=== PATIENT | female | born 1960 | race Caucasian/White ===

== ENCOUNTER → 2023-08-18 07:21 | Outpatient (ROUT) | payer OTHER, MEDICAID, SELFPAY ==
[2023-08-18 07:30] LABS: Hematocrit 42.7 % (36-46); Hemoglobin 14.7 g/dL (12.0-16.0); Mean Corpuscular HGB Conc 34.5 % (30-36); Mean Corpuscular Hemoglobin 35.5 PG (26-34); Mean Corpuscular Volume 102.9 fL (80-100); Platelet Count 210 X10^3/uL (150-400); Red Blood Cell Count 4.15 X10^6/uL (4.0-5.2); Red Cell Distribution Width 13.3 % (11.6-14.8); White Blood Cell Count 7.5 X10^3/uL (4.5-11.0)
[2023-08-18 07:47] LABS: Alanine Aminotransferase 32 IU/L (<35); Albumin 4.6 g/dL (3.5-5.0); Albumin Globulin Ratio 1.4 (1.0-2.8); Alkaline Phosphatase 88 U/L (38-126); Aspartate Aminotransferase 41 IU/L (14-36); BUN Creatinine Ratio 16.7 (6-22); Bilirubin Total 0.5 mg/dL (0.2-1.3); Blood Urea Nitrogen 11 mg/dL (7-17); Calcium 9.9 mg/dL (8.4-10.2); Carbon Dioxide 26 mmol/L (22-32); Chloride 102 mmol/L (98-107); Estimated Glomerular Filt Rate > 60 mL/min (>60); Globulin 3.2 g/dL (1.7-4.1); Glucose 142 mg/dL (80-110); HEMOLYSIS 23 (0-50); Potassium 4.5 mmol/L (3.4-5.1); Sodium 136 mmol/L (137-145); Total Protein 7.8 g/dL (6.3-8.2)
[2023-08-18 08:18] LABS: Thyroid Stimulating Hormone 11.7 uIU/mL (0.47-4.68)
== END ==
PROVIDERS: Visit Provider Internal Medicine
DX: D64.9 Anemia, unspecified (principal); E03.9 Hypothyroidism, unspecified
CPT/HCPCS: 36415; 80053; 84443; 85027

== ENCOUNTER → 2023-09-15 07:54 | Outpatient (ROUT) | payer OTHER, MEDICAID, SELFPAY ==
[2023-09-15 13:44] LABS: Free T4, Direct Thyroxine 1.14 ng/dL (0.78-2.19)
== END ==
PROVIDERS: Visit Provider Internal Medicine
DX: E03.9 Hypothyroidism, unspecified (principal)
CPT/HCPCS: 36415; 84439; 84443

== ENCOUNTER → 2023-10-13 07:16 | Outpatient (ROUT) | payer OTHER, MEDICAID, SELFPAY ==
[2023-10-13 07:30] LABS: Hematocrit 42.4 % (36-46); Hemoglobin 14.8 g/dL (12.0-16.0); Mean Corpuscular HGB Conc 34.8 % (30-36); Mean Corpuscular Hemoglobin 35.2 PG (26-34); Mean Corpuscular Volume 101.1 fL (80-100); Platelet Count 195 X10^3/uL (150-400); Red Cell Distribution Width 12.9 % (11.6-14.8); White Blood Cell Count 6.3 X10^3/uL (4.5-11.0)
[2023-10-13 07:47] LABS: BUN Creatinine Ratio 15.8 (6-22); Blood Urea Nitrogen 12 mg/dL (7-17); Calcium 10.2 mg/dL (8.4-10.2); Carbon Dioxide 25 mmol/L (22-32); Chloride 103 mmol/L (98-107); Estimated Glomerular Filt Rate > 60 mL/min (>60); Glucose 115 mg/dL (80-110); HEMOLYSIS < 15 (0-50); Potassium 4.6 mmol/L (3.4-5.1); Sodium 138 mmol/L (137-145)
[2023-10-13 07:57] LABS: NT-proBNP (BNP-Adult 18+) 210 pg/mL (<125)
== END ==
PROVIDERS: Visit Provider Registered Nurse
DX: I10 Essential (primary) hypertension (principal); R63.5 Abnormal weight gain
CPT/HCPCS: 80048; 83880; 85027

== ENCOUNTER → 2023-10-27 07:22 | Outpatient (ROUT) | payer OTHER, MEDICAID, SELFPAY ==
[2023-10-27 07:56] LABS: Free T4, Direct Thyroxine 1.11 ng/dL (0.78-2.19)
[2023-10-27 08:10] LABS: Thyroid Stimulating Hormone 8.29 uIU/mL (0.47-4.68)
[2023-10-27 10:10] LABS: Hemoglobin A1C% w Est Avg Glu 6.1 % (4.0-6.0)
== END ==
PROVIDERS: Visit Provider Internal Medicine
DX: E03.9 Hypothyroidism, unspecified (principal)
CPT/HCPCS: 36415; 83036; 84439; 84443

== ENCOUNTER → 2023-11-22 15:54 | Outpatient (ROUT) | payer OTHER, MEDICAID, SELFPAY ==
[2023-11-22 16:04] LABS: Appearance Urine UA CLOUDY; Bilirubin Urine UA NEGATIVE (NEGATIVE); Color Urine UA YELLOW; Glucose Urine UA NEGATIVE (Negative); Ketones Urine UA NEGATIVE (NEGATIVE); Leukocyte Esterase Urine UA 1+ (NEGATIVE); Nitrite Urine UA NEGATIVE (Negative); Occult Blood Urine UA 1+ (Negative); Protein Urine UA 1+ (Negative); Specific Gravity Urine UA >=1.030 (1.000-1.035); Urobilinogen Urine UA 0.2 E.U./dL (0.2)
[2023-11-22 16:32] LABS: pH Urine UA 5.5 (4.5-8.0)
[2023-11-22 16:33] LABS: Bacteria Urine Few (2-10); RBC Urine 1-5/HPF (0-5/HPF); Squamous Epithelial Cell Urine 0-1 /HPF (0-5/HPF); Urine Volume Low Vol <10mL (spun); WBC Urine 10-30/HPF (0-5/HPF)
[2023-11-22 16:34] LABS: Culture Indicated Urine Specimen Cultured
== END ==
PROVIDERS: Visit Provider Internal Medicine
DX: R30.0 Dysuria (principal); R35.0 Frequency of micturition; R39.15 Urgency of urination
CPT/HCPCS: 81001; 87077; 87086

== ENCOUNTER → 2023-12-08 15:16 | Outpatient (ROUT) | payer OTHER, MEDICAID, SELFPAY ==
[2023-12-08 15:45] LABS: Appearance Urine UA CLEAR; Bilirubin Urine UA 1+ (NEGATIVE); Color Urine UA YELLOW; Glucose Urine UA NEGATIVE (Negative); Ketones Urine UA TRACE (NEGATIVE); Leukocyte Esterase Urine UA 3+ (NEGATIVE); Nitrite Urine UA NEGATIVE (Negative); Occult Blood Urine UA TRACE-INTACT (Negative); Protein Urine UA 1+ (Negative); Specific Gravity Urine UA 1.025 (1.000-1.035); Urobilinogen Urine UA 0.2 E.U./dL (0.2)
[2023-12-08 16:08] LABS: Bacteria Urine Few (2-10); RBC Urine 1-5/HPF (0-5/HPF); Renal Epithelial Cells Urine 1-5/HPF (0-1/HPF); Squamous Epithelial Cell Urine 0-1 /HPF (0-5/HPF); Transitional Epi Cells Urine 1-5/HPF (0-5/HPF); Urine Volume Low Vol <10mL (spun); WBC Urine 10-30/HPF (0-5/HPF)
[2023-12-08 16:09] LABS: Culture Indicated Urine Cult Not Indicated
[2023-12-08 16:46] LABS: Ictotest Urine Negative (Negative)
== END ==
PROVIDERS: Visit Provider Nurse Practitioner Family
DX: R30.0 Dysuria (principal); R35.0 Frequency of micturition; R39.15 Urgency of urination
CPT/HCPCS: 81001

== ENCOUNTER → 2023-12-09 17:25 | Outpatient (ROUT) | payer OTHER, MEDICAID, SELFPAY ==
[2023-12-09 18:01] LABS: Bilirubin Urine UA NEGATIVE (NEGATIVE); Color Urine UA YELLOW; Glucose Urine UA NEGATIVE (Negative); Ketones Urine UA NEGATIVE (NEGATIVE); Leukocyte Esterase Urine UA 3+ (NEGATIVE); Nitrite Urine UA NEGATIVE (Negative); Occult Blood Urine UA NEGATIVE (Negative); Protein Urine UA NEGATIVE (Negative); Urobilinogen Urine UA 0.2 E.U./dL (0.2)
[2023-12-09 18:28] LABS: Appearance Urine UA CLOUDY; pH Urine UA 6.5 (4.5-8.0)
[2023-12-09 18:34] LABS: Bacteria Urine Moderate (10-30); RBC Urine None Seen (0-5/HPF); Squamous Epithelial Cell Urine None Seen (0-5/HPF); Transitional Epi Cells Urine 1-5/HPF (0-5/HPF); Urine Volume 10mL (spun); WBC Urine 30-100/HPF (0-5/HPF)
[2023-12-09 18:35] LABS: Culture Indicated Urine Specimen Cultured
== END ==
PROVIDERS: Visit Provider Nurse Practitioner Family
DX: R30.0 Dysuria (principal); R35.0 Frequency of micturition; R39.15 Urgency of urination
CPT/HCPCS: 81001; 87086

== ENCOUNTER → 2023-12-27 15:29 | Outpatient (ROUT) | payer OTHER, MEDICAID, SELFPAY ==
[2023-12-27 15:37] LABS: Appearance Urine UA CLOUDY; Bilirubin Urine UA NEGATIVE (NEGATIVE); Color Urine UA YELLOW; Glucose Urine UA NEGATIVE (Negative); Ketones Urine UA NEGATIVE (NEGATIVE); Leukocyte Esterase Urine UA 1+ (NEGATIVE); Nitrite Urine UA NEGATIVE (Negative); Occult Blood Urine UA 3+ (Negative); Protein Urine UA 2+ (Negative); Specific Gravity Urine UA >=1.030 (1.000-1.035); Urobilinogen Urine UA 0.2 E.U./dL (0.2); pH Urine UA 5.5 (4.5-8.0)
[2023-12-27 15:48] LABS: Bacteria Urine Many (>30); Culture Indicated Urine Specimen Cultured; RBC Urine >100/HPF (0-5/HPF); Squamous Epithelial Cell Urine 5-10 /HPF (0-5/HPF); Urine Volume Low Vol <10mL (spun); WBC Urine 30-100/HPF (0-5/HPF)
== END ==
PROVIDERS: Visit Provider Internal Medicine
DX: R39.15 Urgency of urination (principal)
CPT/HCPCS: 81001; 87077; 87086; 87186

== ENCOUNTER → 2024-03-21 15:59 | Outpatient (ROUT) | payer OTHER, SELFPAY ==
[2024-03-21 16:30] LABS: Appearance Urine UA CLEAR; Bilirubin Urine UA NEGATIVE (NEGATIVE); Color Urine UA YELLOW; Glucose Urine UA NEGATIVE (Negative); Ketones Urine UA TRACE (NEGATIVE); Leukocyte Esterase Urine UA TRACE (NEGATIVE); Nitrite Urine UA NEGATIVE (Negative); Occult Blood Urine UA NEGATIVE (Negative); Protein Urine UA NEGATIVE (Negative); Specific Gravity Urine UA 1.025 (1.000-1.035); Urobilinogen Urine UA 0.2 E.U./dL (0.2)
[2024-03-21 16:38] LABS: Bacteria Urine Few (2-10); Culture Indicated Urine Cult Not Indicated; RBC Urine 0-1/HPF (0-5/HPF); Squamous Epithelial Cell Urine 1-5 /HPF (0-5/HPF); Urine Volume 10mL (spun); WBC Urine 1-5/HPF (0-5/HPF)
[2024-03-21 16:41] LABS: Influenza A - CEPHEID Flu A NEGATIVE (NEGATIVE); Influenza B - CEPHEID Flu B NEGATIVE (NEGATIVE); Respiratory Syncytial Virus Negative (Negative)
[2024-03-21 16:43] LABS: COVID-19 CEPHEID 4-PLEX PCR Negative (Negative)
== END ==
PROVIDERS: Visit Provider Registered Nurse
DX: R05.9 Cough, unspecified (principal); R30.0 Dysuria; R35.0 Frequency of micturition; R39.15 Urgency of urination
CPT/HCPCS: 87635; 87400 ×2; 87420; 0241U; 81001

== ENCOUNTER → 2024-04-07 07:34 | Outpatient (ROUT) | payer OTHER, SELFPAY ==
[2024-04-07 08:08] LABS: Appearance Urine UA CLOUDY; Color Urine UA YELLOW; Specific Gravity Urine UA 1.025 (1.000-1.035); pH Urine UA 5.5 (4.5-8.0)
[2024-04-07 08:09] LABS: Bilirubin Urine UA 1+ (NEGATIVE); Glucose Urine UA NEGATIVE (Negative); Ketones Urine UA TRACE (NEGATIVE); Leukocyte Esterase Urine UA TRACE (NEGATIVE); Nitrite Urine UA NEGATIVE (Negative); Occult Blood Urine UA 3+ (Negative); Protein Urine UA 1+ (Negative); Urine Volume 10mL (spun); Urobilinogen Urine UA 0.2 E.U./dL (0.2)
[2024-04-07 08:10] LABS: Bacteria Urine Many (>30); Calcium Oxalate Crystals Urine Moderate; Culture Indicated Urine Specimen Cultured; RBC Urine 10-30/HPF (0-5/HPF); Squamous Epithelial Cell Urine 1-5 /HPF (0-5/HPF); WBC Urine >100/HPF (0-5/HPF)
[2024-04-07 08:12] LABS: Ictotest Urine Negative (Negative)
== END ==
PROVIDERS: Visit Provider Registered Nurse
DX: R30.0 Dysuria (principal); R35.0 Frequency of micturition; R39.15 Urgency of urination
CPT/HCPCS: 81001; 87077; 87086; 87186

== ENCOUNTER → 2024-04-25 19:36 | Outpatient (ROUT) | payer OTHER, SELFPAY ==
[2024-04-25 20:22] LABS: Appearance Urine UA CLOUDY; Bilirubin Urine UA NEGATIVE (NEGATIVE); Color Urine UA YELLOW; Glucose Urine UA NEGATIVE (Negative); Ketones Urine UA TRACE (NEGATIVE); Leukocyte Esterase Urine UA 3+ (NEGATIVE); Nitrite Urine UA POSITIVE (Negative); Occult Blood Urine UA NEGATIVE (Negative); Protein Urine UA NEGATIVE (Negative); Specific Gravity Urine UA 1.015 (1.000-1.035)
[2024-04-25 20:30] LABS: Bacteria Urine Many (>30); RBC Urine None Seen (0-5/HPF); Squamous Epithelial Cell Urine 0-1 /HPF (0-5/HPF); Urine Volume 10mL (spun); WBC Urine 30-100/HPF (0-5/HPF)
[2024-04-25 20:31] LABS: Culture Indicated Urine Specimen Cultured; Transitional Epi Cells Urine 1-5/HPF (0-5/HPF)
== END ==
PROVIDERS: Visit Provider Registered Nurse
DX: R33.9 Retention of urine, unspecified (principal); R35.0 Frequency of micturition; R39.15 Urgency of urination
CPT/HCPCS: 81001; 87077; 87086; 87186

== ENCOUNTER → 2024-05-25 14:48 | Outpatient (CLI) | payer OTHER, SELFPAY | PROVIDERS: Visit Provider Urology | DX: R39.9 Unspecified symptoms and signs involving the genitourinary system (principal) | CPT/HCPCS: 87077; 87086 ==

== ENCOUNTER 2024-06-20 20:35 | Emergency (ER) | payer OTHER, SELFPAY ==
[2024-06-20] VITALS (10 sets, daily range): BP systolic 93–143; BP diastolic 52–80; PULSE 64–80; RESP 17–18; TEMP 36.1; O2SAT 93–99; BMI 30.4
--- NOTE | 2024-06-20 21:38 | ED_ITS ---
HPI - Fall General Chief Complaint: Fall Stated Complaint: GLF Time Seen by Provider: 06/20/24 21:38 Source: patient and EMS Mode of arrival: EMS History of Present Illness HPI Narrative: Patient is a 63-year-old female with past medical history of hypothyroidism, hypertension, comes into the ED via EMS for evaluation of fall. Patient admits to drinking some alcohol today states that she fell hit the back of her head but denies any LOC not on any blood thinners, time of evaluation patient is inebriated however answering questions appropriately moving all 4 extremities spontaneously, NIH of 0. Related Data Home Medications Medication Instructions Recorded Confirmed acetaminophen 500 mg tablet 500 mg PO Q6H PRN 05/25/24 05/25/24 (Tylenol Extra Strength) anastrozole 1 mg tablet 1 mg PO DAILY 05/25/24 05/25/24 cholecalciferol (vitamin D3) 25 25 mcg PO DAILY 05/25/24 05/25/24 mcg (1,000 unit) capsule diclofenac sodium 1 % topical gel 2 g topical QID 05/25/24 05/25/24 (Arthritis Pain (diclofenac)) divalproex 500 mg tablet,delayed 500 mg PO BID 05/25/24 05/25/24 release gabapentin 300 mg capsule 300 mg PO BEDTIME 05/25/24 05/25/24 guaifenesin 400 mg tablet 400 mg PO ONCE PRN 05/25/24 05/25/24 hydrocortisone 1 % topical cream 1 applic topical TID PRN 05/25/24 05/25/24 ketoconazole 2 % shampoo 1 applic topical 2XW 05/25/24 05/25/24 ketoconazole 2 % topical cream 1 applic topical DAILY 05/25/24 05/25/24 levothyroxine 200 mcg capsule 200 mcg PO DAILY 05/25/24 05/25/24 levothyroxine 25 mcg capsule 25 mcg PO DAILY 05/25/24 05/25/24 loperamide 2 mg tablet 2 mg PO Q6H PRN 05/25/24 05/25/24 (Anti-Diarrheal (loperamide)) magnesium 250 mg tablet 250 mg PO DAILY 05/25/24 05/25/24 metoprolol succinate 25 mg 12.5 mg PO DAILY 05/25/24 05/25/24 tablet,extended release 24 hr ondansetron HCl 4 mg tablet 4 mg PO Q8H PRN 05/25/24 05/25/24 oxybutynin chloride 5 mg tablet 5 mg PO BID 05/25/24 05/25/24 vitamins no.148-iron 27 cap PO 05/25/24 05/25/24 mg-folate 1 mg-dha 205 mg capsule quetiapine 100 mg tablet 100 mg PO DAILY 05/25/24 05/25/24 quetiapine 400 mg tablet 400 mg PO BID 05/25/24 05/25/24 trazodone 100 mg tablet 100 mg PO BEDTIME PRN 05/25/24 05/25/24 Allergies Allergy/AdvReac Type Severity Reaction Status Date / Time Penicillins Allergy Unknown Verified 05/25/24 15:08 Sulfa (Sulfonamide AdvReac Verified 05/25/24 15:08 Antibiotics) Review of Systems Review of Systems Narrative: General: Positive fall, Denies fever, chills, weight loss HEENT: Denies headache, eye drainage, eye irritation, head trauma, sore throat, voice change Cardiovascular: Denies any chest pain, palpitations, tachycardia Respiratory: Denies any shortness of breath, cough, wheeze, stridor GI/: Denies any abdominal pain, nausea, vomiting, diarrhea, bright red blood per rectum, melanotic stools, urinary frequency, urinary retention, dysuria, hematuria MSK: Denies any joint pain, muscle pains, swelling Skin: Denies any rashes, lesions, discoloration Neuro: Denies any headache, lightheadedness, dizziness, fainting, weakness Psych: Denies SI/HI Patient History Medical History Hx of thyroid disease History of depression Hx of breast cancer Surgical History Hx of lithotripsy History of kidney surgery Social History marital status: unmarried,single Smoking Status: Current every day smoker Tobacco: How many years used: 55 alcohol intake: former caffeine: Yes Type(s) of exercise: walking frequency: daily duration: decline to answer Smoking Status: Current every day smoker tobacco type: cigarettes Exam Narrative Exam Narrative: General: Cooperative, well-developed, not in acute distress HEENT: 0.5cm linear laceration of the posterior aspect of the head, not active bleeding, PERRLA, normal sclera, eyelids normal Neck: Active full range of motion, atraumatic Chest: Normal to inspection, negative crepitus, no overlying erythema ecchymosis Respiratory: Normal respiratory effort, not in acute respiratory distress, clear to auscultation bilaterally negative cough, wheeze, tachypnea, rhonchi, rales Cardiology: Regular rate rhythm negative gallop, murmur, rubs GI/: No tenderness to palpation, soft, non rigid, normal to inspection, exam deferred MSK: Full active range of motion in all 4 extremities, atraumatic, no tenderness to palpation of any bony prominences Skin: No rashes or lesions noted Neuro: NIH of 0, however patient is inebriated, Alert awake oriented x3, moves all 4 extremities spontaneously, cranial nerves intact, able to answer all questions appropriately follows commands appropriately Psych: Cooperative, negative suicidal or homicidal ideations Initial Vital Signs Initial Vital Signs: Vital Signs Pulse Rate 64 06/20/24 20:37 Pulse Oximetry 98 06/20/24 20:37 Procedures Laceration Repair Laceration 1: Time of procedure: 22:56 Site: scalp Description: linear Depth: simple, single layer Local Anesthetic: lidocaine 1% and with epi Amount of anesthesia used (mL): 2 Skin layer closed with: melissa (1) Course Orders Ordered: ED Orders 06/20/24 21:39 CT cervical spine wo con Stat CT head/brain wo con Stat Vital Signs Vital signs: Vital Signs - 8 hr 06/20/24 20:37 06/20/24 20:40 06/20/24 20:47 Temperature 96.9 F L Pulse Rate 64 67 66 Respiratory Rate 18 Blood Pressure 126/65 Pulse Oximetry 98 98 97 Oxygen Delivery Method Room Air 06/20/24 20:47 06/20/24 21:00 06/20/24 21:00 Temperature Pulse Rate 65 Respiratory Rate Blood Pressure 105/65 99/52 L Pulse Oximetry 97 Oxygen Delivery Method Room Air 06/20/24 21:30 06/20/24 21:30 06/20/24 22:07 Temperature Pulse Rate 66 65 Respiratory Rate Blood Pressure 93/54 L Pulse Oximetry 93 99 Oxygen Delivery Method 06/20/24 22:08 06/20/24 22:08 Temperature Pulse Rate 70 Respiratory Rate Blood Pressure 143/80 H Pulse Oximetry 99 Oxygen Delivery Method Room Air MDM - Fall Differential Diagnosis Differential diagnosis: Likely other (Closed head injury, scalp laceration) Imaging Data CT scan - head: Radiologist's Impression: [address] [address] [address] Scan Report Signed Patient: Gaye Malloy MR#: [id number] : 1960 Acct:[id number] Age/Sex: 63 / F Date of Service: 06/20/24 Loc: ED Accession Number: [id number] Procedure: CT head/brain wo con Ordering Provider: Sergio Corona D.O. PROCEDURE: CT HEAD/BRAIN WO CON INDICATIONS: Trauma TECHNIQUE: Noncontrast 4.5 mm thick angled axial sections acquired from the foramen magnum to the vertex, with coronal and sagittal reformats. For radiation dose reduction, the following was used: automated exposure control, adjustment of mA and/or kV according to patient size. COMPARISON: None. FINDINGS: Image quality: Diagnostic. CSF spaces: Basal cisterns are patent. No extra-axial fluid collections. The ventricles are symmetric in size and shape. Brain: No intracranial bleeds or mass effect. There is cerebral volume loss, with resultant ventricular and sulcal prominence. There are periventricular and deep white matter chronic small vessel ischemic changes. There is intracranial internal carotid artery atherosclerosis. Skull and face: Calvarium and visualized facial bones appear intact, without suspicious lesions. Posterior scalp hematoma. Sinuses: Visualized sinuses and mastoids are clear. IMPRESSION: No acute intracranial pathology. Posterior scalp hematoma without underlying fracture. CT - cervical spine: Radiologist's Impression: [address] [address] [address] Scan Report Signed Patient: Gaye Malloy MR#: [id number] : 1960 Acct:[id number] Age/Sex: 63 / F Date of Service: 06/20/24 Loc: ED Accession Number: [id number] Procedure: CT cervical spine wo con Ordering Provider: Sergio Corona D.O. PROCEDURE: CT CERVICAL SPINE WO CON INDICATIONS: trauma TECHNIQUE: Noncontrast 3 mm thick sections acquired from the skull base to the T4 level. Sagittal and coronal reformats were then constructed. For radiation dose reduction, the following was used: automated exposure control, adjustment of mA and/or kV according to patient size. COMPARISON: None. FINDINGS: Image quality: Excellent. Bones: No fractures or dislocations. Visualized superior ribs are intact. Soft tissues: Prevertebral soft tissues are normal in thickness. No paravertebral hematomas. No apical pneumothoraces. IMPRESSION: No displaced fracture or traumatic subluxation. ECG Data Interpretation: 63-year-old female history of hypertension hypothyroidism presenting via EMS for evaluation of fall. She states that she had a mechanical trip and fall after drinking some alcohol, 0.5 cm laceration noted in the posterior aspect of the head, was repaired with 1 staple. MDM Narrative Medical decision making narrative: 63-year-old female with a past medical history of hypertension hypothyroidism presents from living assisted facility for evaluation mechanical trip and fall. She states that she has been drinking, states that she went outside to try to smoke tripped fell hit the back of her head, no LOC not on any blood thinners. Patient with a 0.5 cm laceration to the posterior scalp which was closed with 1 staple. Patient without any active bleeding on exam. CT scan of the head and neck without any acute traumatic injuries, patient was given strict return precautions and sent back to facility. Discharge Plan Departure Patient Disposition: Home Clinical Impression: Laceration of scalp, Closed head injury Instructions: DI for Laceration Repair -- Melissa Activity Restrictions/Additional Instructions: You have 1 staple that needs to be removed in approximately 5-7 days Please follow up with the primary care doctor Please read the discharge instructions sheet carefully and bring all papers to all doctor follow-up visits, as it may contain information that your doctor may want to see. Disease processes change and evolve, if your symptoms worsen or if you develop any new symptoms that are concerning to you please return for evaluation. Your evaluation today does not show any evidence of any life-threatening/serious illnesses requiring admission to the hospital or surgery. Please follow-up with your doctor for re-evaluation in approximately 1 day. Seek immediate medical attention for any worrisome symptoms. *If you do not have a primary care provider please contact the [facility] Resource line at [phone]. They will ask some questions about your medical history and help get you set up with a doctor in the community. Prescriptions: No Action quetiapine 100 mg tablet 100 mg PO DAILY ketoconazole 2 % cream 1 applic topical DAILY guaifenesin 400 mg tablet 400 mg PO ONCE PRN trazodone 100 mg tablet 100 mg PO BEDTIME PRN metoprolol succinate 25 mg tablet extended release 24 hr 12.5 mg PO DAILY cholecalciferol (vitamin D3) 25 mcg (1,000 unit) capsule 25 mcg PO DAILY anastrozole 1 mg tablet 1 mg PO DAILY [id number] 6-dha 27 mg iron-1 mg -205 mg capsule PO ketoconazole 2 % shampoo 1 applic topical 2XW oxybutynin chloride 5 mg tablet 5 mg PO BID levothyroxine 200 mcg capsule 200 mcg PO DAILY levothyroxine 25 mcg capsule 25 mcg PO DAILY ondansetron HCl 4 mg tablet 4 mg PO Q8H PRN loperamide [Anti-Diarrheal (loperamide)] 2 mg tablet 2 mg PO Q6H PRN gabapentin 300 mg capsule 300 mg PO BEDTIME hydrocortisone 1 % cream 1 applic topical TID PRN magnesium 250 mg tablet 250 mg PO DAILY acetaminophen [Tylenol Extra Strength] 500 mg tablet 500 mg PO Q6H PRN diclofenac sodium [Arthritis Pain (diclofenac)] 1 % gel 2 g topical QID Rx Instructions: apply to single elbow, wrist or hand; for hand includes palm/fingers/back of hand quetiapine 400 mg tablet 400 mg PO BID divalproex 500 mg tablet,delayed release (DR/EC) 500 mg PO BID Stand Alone Forms: Patient Portal/API/Survey
--- NOTE | 2024-06-20 23:05 | PC.NURSE ---
Addendum entered by Virginia Betancourt R.N. 06/20/24 23:08: Called [facility] and gave report to nurse. They said someone will meet the patient out front when ishan leong brings her back to help with getting her in the facility. Original Note: Called [facility] and gave report to nurse.
== END 2024-06-20 23:26 | disposition home or self-care (01) ==
PROVIDERS: Emergency Provider Student in an Organized Health Care Education/Training Program
DX: S01.01XA Laceration without foreign body of scalp, initial encounter (principal); W01.0XXA Fall on same level from slipping, tripping and stumbling without subsequent striking against object, initial encounter
CPT/HCPCS: 12001; 70450; 72125; 99281; 99284

== ENCOUNTER → 2024-07-01 18:19 | Outpatient (ROUT) | payer OTHER, SELFPAY ==
[2024-07-01 18:38] LABS: Appearance Urine UA CLOUDY; Bilirubin Urine UA NEGATIVE (NEGATIVE); Color Urine UA YELLOW; Glucose Urine UA NEGATIVE (Negative); Ketones Urine UA 1+ (NEGATIVE); Leukocyte Esterase Urine UA 3+ (NEGATIVE); Nitrite Urine UA NEGATIVE (Negative); Occult Blood Urine UA 3+ (Negative); Protein Urine UA 1+ (Negative)
[2024-07-01 18:44] LABS: Bacteria Urine Many (>30); Culture Indicated Urine Specimen Cultured; RBC Urine 10-30/HPF (0-5/HPF); Squamous Epithelial Cell Urine 1-5 /HPF (0-5/HPF); Urine Volume 10mL (spun); WBC Urine 30-100/HPF (0-5/HPF)
== END ==
LOC: LAB 18:20
PROVIDERS: Visit Provider Registered Nurse
DX: R35.0 Frequency of micturition (principal); N39.41 Urge incontinence
CPT/HCPCS: 81001; 87077; 87086

== ENCOUNTER → 2024-08-03 07:53 | Outpatient (ROUT) | payer OTHER, SELFPAY ==
[2024-08-03 08:19] LABS: Hematocrit 39.9 % (36-46); Hemoglobin 13.7 g/dL (12.0-16.0); Mean Corpuscular HGB Conc 34.2 % (30-36); Mean Corpuscular Hemoglobin 37.6 PG (26-34); Mean Corpuscular Volume 109.9 fL (80-100); Platelet Count 196 X10^3/uL (150-400); Red Blood Cell Count 3.63 X10^6/uL (4.0-5.2); Red Cell Distribution Width 14.7 % (11.6-14.8); White Blood Cell Count 5.5 X10^3/uL (4.5-11.0)
[2024-08-03 08:41] LABS: HEMOLYSIS < 15 (0-50); Iron 113 ug/dL (37-170)
[2024-08-03 08:44] LABS: BUN Creatinine Ratio 19.4 (6-22); Blood Urea Nitrogen 12 mg/dL (7-17); Calcium 9.5 mg/dL (8.4-10.2); Carbon Dioxide 24 mmol/L (22-32); Chloride 104 mmol/L (98-107); Estimated Glomerular Filt Rate > 60 mL/min (>60); Glucose 136 mg/dL (70-99); HEMOLYSIS < 15 (0-50); Magnesium 1.5 mg/dL (1.6-2.3); Potassium 4.3 mmol/L (3.4-5.1); Sodium 136 mmol/L (137-145)
[2024-08-03 08:53] LABS: Percent Iron Saturation 36 % (15-50); Total Iron Binding Capacity 314 ug/dL (265-497); Transferrin 270 mg/dL (206-381)
[2024-08-03 08:59] LABS: Free T4, Direct Thyroxine 1.44 ng/dL (0.78-2.19)
[2024-08-03 09:13] LABS: Thyroid Stimulating Hormone 2.78 uIU/mL (0.47-4.68)
[2024-08-03 09:22] LABS: Ferritin 262 ng/mL (11-264)
== END ==
PROVIDERS: Visit Provider Registered Nurse
DX: R05.9 Cough, unspecified (principal); D64.9 Anemia, unspecified; E03.9 Hypothyroidism, unspecified; I10 Essential (primary) hypertension
CPT/HCPCS: 36415; 80048; 82728; 83540; 83550; 83735; 84439; 84443; 85027

== ENCOUNTER → 2024-08-19 11:13 | Outpatient (CLI) | payer OTHER, SELFPAY ==
--- NOTE | 2024-08-19 11:18 | DI.RAD.S_ITS ---
PROCEDURE: XR CHEST 2V INDICATIONS: CRACKLES, INCREASED SPUTUM TECHNIQUE: 2 views of the chest were acquired. COMPARISON: None. FINDINGS: Surgical changes and devices: None. Lungs and pleura: Small mixed interstitial and alveolar opacity in the right lower lung. Probable trace right pleural effusion. No pneumothorax. Findings are superimposed on mild diffuse interstitial thickening. Mediastinum: Mediastinal contours are normal. Heart size is normal. Bones and chest wall: No suspicious bony abnormalities. Soft tissues appear unremarkable. IMPRESSION: Mixed right lower lung interstitial and alveolar opacity. This may represent pneumonia superimposed on mild chronic edema. Correlate with clinical findings. Dictated by: Merlyn Fontenot M.D. on 08/19/2024 at 17:57 Approved by: Merlyn Fontenot M.D. on 08/19/2024 at 17:58
== END ==
LOC: RAD 11:16
PROVIDERS: PCP Registered Nurse; Referring Provider Registered Nurse; Visit Provider Registered Nurse
DX: R06.89 Other abnormalities of breathing (principal); R09.3 Abnormal sputum
CPT/HCPCS: 71046

== ENCOUNTER → 2024-11-09 08:11 | Outpatient (ROUT) | payer OTHER, SELFPAY ==
[2024-11-09 08:28] LABS: Hematocrit 43.6 % (36-46); Hemoglobin 15.1 g/dL (12.0-16.0); Mean Corpuscular HGB Conc 34.5 % (30-36); Mean Corpuscular Hemoglobin 37.4 PG (26-34); Mean Corpuscular Volume 108.1 fL (80-100); Platelet Count 156 X10^3/uL (150-400)
[2024-11-09 08:49] LABS: HEMOLYSIS < 15 (0-50); Iron 173 ug/dL (37-170)
[2024-11-09 08:51] LABS: Alanine Aminotransferase 42 IU/L (<35); Albumin 4.2 g/dL (3.5-5.0); Albumin Globulin Ratio 1.3 (1.0-2.8); Alkaline Phosphatase 116 U/L (38-126); Blood Urea Nitrogen 11 mg/dL (7-17); Calcium 9.3 mg/dL (8.4-10.2); Carbon Dioxide 24 mmol/L (22-32); Chloride 100 mmol/L (98-107); Estimated Glomerular Filt Rate > 60 mL/min (>60); Globulin 3.2 g/dL (1.7-4.1); Glucose 136 mg/dL (70-99); HEMOLYSIS 23 (0-50); Magnesium 1.7 mg/dL (1.6-2.3); Potassium 3.9 mmol/L (3.4-5.1); Sodium 136 mmol/L (137-145); Total Protein 7.4 g/dL (6.3-8.2)
[2024-11-09 09:12] LABS: Percent Iron Saturation 64 % (15-50); Total Iron Binding Capacity 272 ug/dL (265-497); Transferrin 229 mg/dL (206-381)
[2024-11-09 09:58] LABS: Folate > 20.0 ng/mL (2.76-20.0); Vitamin B12 567 pg/mL (239-931)
== END ==
PROVIDERS: PCP Registered Nurse; Visit Provider Registered Nurse
DX: D64.9 Anemia, unspecified (principal); E83.42 Hypomagnesemia; R79.89 Other specified abnormal findings of blood chemistry; F10.90 Alcohol use, unspecified, uncomplicated
CPT/HCPCS: 36415; 80053; 82607; 82746; 83540; 83550; 83735; 85027

== ENCOUNTER → 2025-03-01 07:58 | Outpatient (ROUT) | payer OTHER, SELFPAY ==
[2025-03-01 08:25] LABS: Hematocrit 42.3 % (36-46); Hemoglobin 15.1 g/dL (12.0-16.0)
[2025-03-01 08:37] LABS: Blood Urea Nitrogen 9 mg/dL (7-17); Calcium 9.3 mg/dL (8.4-10.2); Carbon Dioxide 28 mmol/L (22-32); Chloride 101 mmol/L (98-107); Estimated Glomerular Filt Rate > 60 mL/min (>60); Glucose 115 mg/dL (70-99); HEMOLYSIS < 15 (0-50); Magnesium 1.7 mg/dL (1.6-2.3); Potassium 4.2 mmol/L (3.4-5.1); Sodium 137 mmol/L (137-145)
[2025-03-01 08:54] LABS: Vitamin D 25 Hydroxy (D3) 38.1 ng/mL (30.0-100.0)
[2025-03-01 12:22] LABS: Folate > 20.0 ng/mL (2.76-20.0); Vitamin B12 655 pg/mL (239-931)
[2025-03-01 13:02] LABS: Free T4, Direct Thyroxine 1.59 ng/dL (0.78-2.19)
[2025-03-01 13:16] LABS: Thyroid Stimulating Hormone 0.490 uIU/mL (0.47-4.68)
[2025-03-02 06:10] LABS: Valproic Acid (Depakene) Total 40 ug/mL (50-100)
== END ==
PROVIDERS: PCP Registered Nurse; Visit Provider Registered Nurse
DX: E03.9 Hypothyroidism, unspecified (principal); D69.6 Thrombocytopenia, unspecified
CPT/HCPCS: 36415; 80048; 80164; 82306; 82607; 82746; 83735; 84439; 84443; 85014; 85018